=== PATIENT | female | born 1995 | race Caucasian/White ===

== ENCOUNTER 2017-04-14 10:35 | Emergency (ER) | payer OTHER ==
[2017-04-14 10:44] VITALS: RESP 18
[2017-04-14] MEDS ORDERED: IBUPROFEN 600 MG STARTER PACK 4 TAB BTL PO STA (11:09)
--- NOTE | 2017-04-14 11:14 | ED ---
General Adult HPI - General Chief complaint: Extremity Injury, Upper Stated complaint: RT SHOULDER AND NECK PAIN Source: patient, family, RN notes reviewed, old records reviewed Mode of arrival: ambulatory Limitations: no limitations - History of Present Illness Initial comments: Chief complaint and history of present illness a 21-year-old female here with her mother. The patient has right trapezius muscle pain ongoing for several days. 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 No direct injury. - Related Data Home Medications Medication Instructions Recorded Confirmed Fluticasone Propionate [Flonase] 2 sprays EA NOSTRIL DAILY 12/15/14 04/14/17 Acetaminophen Tab [Tylenol Tab] 325 mg PO Q4H PRN 04/14/17 04/14/17 Norgestimate-Ethinyl Estradiol 1 tab PO HS 04/14/17 04/14/17 [Sprintec 28 Day Tablet] Venlafaxine HCl [Effexor XR] 75 mg PO HS 04/14/17 04/14/17 Previous Rx's Medication Instructions Recorded Orphenadrine [Norflex] 100 mg PO Q12H #6 tablet.er 04/14/17 predniSONE 20 mg PO DAILY #3 tab 04/14/17 Allergies Allergy/AdvReac Type Severity Reaction Status Date / Time sulfamethoxazole Allergy Rash/Hives Verified 04/14/17 10:58 [From Bactrim] trimethoprim [From Bactrim] Allergy Rash/Hives Verified 04/14/17 10:58 Review of Systems ROS Statement: Those systems with pertinent positive or pertinent negative responses have been documented in the HPI. Review of systems no visual acuity changes no headache no shortness of breath no GI/ problems. All systems were reviewed past medical problems significant for GERD, neurocardiogenic syncope, corrected with a pacemaker. Patient ALLERGIES to sulfa. Family history diabetes lymphoma and bone cancer. Patient does smoke, strongly encouraged to stop . ROS Other: All systems not noted in ROS Statement are negative. Past Medical History Past Medical History: GERD/Reflux, Seizure Disorder Additional Past Medical History / Comment(s): see DR Marysol Kessler, chronic sinusitis,recently finished antibiotics for sinus infections,stated "was told by Dr Reilly will need to have sinus surgery to tx infection" malignant neurocardiogenic vasovagal syncope History of Any Multi-Drug Resistant Organisms: None Reported Past Surgical History: Pacemaker Past Anesthesia/Blood Transfusion Reactions: Motion Sickness Additional Past Anesthesia/Blood Transfusion Reaction / Comment(s): pt has never had anesthesia, no family problems Type of Cardiac Device: Permanent Pacemaker Device Placement Date:: 2014 Past Psychological History: Anxiety, Depression Smoking Status: Current every day smoker Past Alcohol Use History: Occasional Past Drug Use History: None Reported - Past Family History Mother Additional Family Medical History / Comment(s): prolapsed heart valve Father Family Medical History: Hypertension, Thyroid Disorder General Exam - General Exam Comments Initial Comments: General: The patient is awake and alert, in no distress, and does not appear acutely ill. Complains of discomfort to the right trapezius muscle. Vital signs temp 97.2 pulse 92 respiratory rate 18 pulse ox on percent room air blood pressure 157/77 Eye: Pupils are equal, extra-ocular movements are intact; there is normal conjunctiva bilaterally. No signs of icterus. Neck: She complains discomfort to the right trapezius muscle starting at approximately the right worship area radiating down the right side of the neck to the upper shoulder area. Back: Mild discomfort to the right scapular region. Musculoskeletal: Full range of motion upper extremities good feed in worker bilateral. No drift noted. Neurovascular status to the hands intact. Neurological: No neuro deficits. Skin: No rash noted. Limitations: no limitations Course Vital Signs 04/14/17 10:41 Temperature 97.2 F L Pulse Rate 92 Respiratory 18 Rate Blood Pressure 157/77 O2 Sat by Pulse 100 Oximetry Medical Decision Making - Medical Decision Making X-rays of the cervical spine were done AP lateral view and obliques. And they were reviewed by the radiologist his findings are there is some loss of the normal cervical lordosis. Vertebral body height and alignment are maintained. The plant waxy relationship normal. Prevertebral soft tissues are normal. Intravertebral foramina are widely maintained. No fracture seen. There is no significant degenerative change. Impression; normal cervical spine. As read by Dr. Petty Discuss acute cervical strain and trapezius muscle discomfort and how it relates to discomfort that goes down the right arm. The patient was placed on Tylenol 500 mg every 6 hours. Heat alternating with ice. Norflex for 3 days. And prednisone for 3 days. Advised to follow with family physician. Disposition Clinical Impression: Acute cervical myofascial strain Disposition: HOME SELF-CARE Condition: Fair Instructions: Cervical Strain (ED), Acute Neck Pain (ED) Additional Instructions: Ice alternating with heat including hot showers. Gentle range of motion. Tylenol as directed as well as Norflex and prednisone for 3 days. Follow-up with family physician as needed Prescriptions: Orphenadrine [Norflex] 100 mg PO Q12H #6 tablet.er predniSONE 20 mg PO DAILY #3 tab Referrals: Nicole Mobley MD [Primary Care Provider] - 1-2 days Time of Disposition: 11:54
--- NOTE | 2017-04-14 11:41 | XR ---
EXAMINATION TYPE: XR cervical spine comp DATE OF EXAM ORDERED: 04/14/2017 HISTORY: Right sided neck pain. COMPARISON: None. FINDINGS: There is some loss of the normal cervical lordosis. Vertebral body height and alignment are maintained. Atlantoaxial relationships are normal. Prevertebr al soft tissues are normal. Intervertebral foramina are widely maintained. No fracture is seen. There is no significant degenerative change. IMPRESSION: NORMAL CERVICAL SPINE.
[2017-04-14 12:02] VITALS: BP 131/80; PULSE 68; TEMP 98
== END 2017-04-14 12:01 | disposition home or self-care (01) ==
LOC: EC 10:35
DX: S16.1XXA Strain of muscle, fascia and tendon at neck level, initial encounter (principal); F32.9 Major depressive disorder, single episode, unspecified; F17.200 Nicotine dependence, unspecified, uncomplicated; Z88.2 Allergy status to sulfonamides; Z79.3 Long term (current) use of hormonal contraceptives; Z79.51 Long term (current) use of inhaled steroids; Z79.899 Other long term (current) drug therapy; X58.XXXA Exposure to other specified factors, initial encounter
CPT/HCPCS: 72050; 99284

== ENCOUNTER → 2020-08-19 | Outpatient (CLI) | payer OTHER ==
--- NOTE | 2020-08-19 14:43 | CT ---
EXAMINATION TYPE: CT brain wo con DATE OF EXAM: 08/19/2020 HISTORY: dizziness, giddiness, syncope. CT DLP: 781.7 mGycm. Automated Exposure Control for Dose Reduction was Utilized. TECHNIQUE: CT scan of the head is performed without contrast. COMPARISON: CT brain 04/23/2003 FINDINGS: There is no acute intracranial hemorrhage, midline shift, or mass effect identified. Brain parenchyma appears normal. The ventricles, sulci, and cisterns are normal in size and configuration. No extra-axial fluid collection. Bones and extracranial soft tissues are intact. The globes are gross ly symmetric. Visualized sinuses demonstrate mucosal thickening of the ethmoid and right sphenoid sin uses. Mastoid air cells are clear. IMPRESSION: No acute intracranial hemorrhage, midline shift, or mass effect.
--- NOTE | 2020-08-19 17:57 | CT ---
EXAMINATION TYPE: CT thoracic spine wo con DATE OF EXAM: 08/19/2020 COMPARISON: None HISTORY: upper to mid back pain CT DLP: 733.8 mGycm Automated exposure control for dose reduction was used. TECHNIQUE: Axial imaging of the thoracic spine was obtained without the use of intravenous contrast. Coronal and sagittal reformatted images were generated. FINDINGS: Vertebral body height and disc spaces are normal. There is no evidence of acute fracture or dislocati on. There is minimal degenerative endplate disease. No significant facet arthropathy. There is normal on all alignment. No spondylolisthesis. No evidence of canal stenosis or neural foraminal bony encro achment. Paraspinous musculature is unremarkable. Incompletely visualized cardiac pacemaker leads. Normal adrenal glands. IMPRESSION: MINIMAL DEGENERATIVE ENDPLATE DISEASE OF THE THORACIC SPINE. NO ACUTE PROCESS.
== END | disposition home or self-care (01) ==
LOC: RADCTMAIN 12:44
PROVIDERS: ATTEND Psychiatry & Neurology Neurology
DX: M47.814 Spondylosis without myelopathy or radiculopathy, thoracic region (principal); R42 Dizziness and giddiness; R55 Syncope and collapse
CPT/HCPCS: 70450; 72128